=== PATIENT | male | born 1935 | race Caucasian/White ===

== ENCOUNTER 2023-12-30 16:01 | Emergency (ER) | payer MEDICARE, BC, SELFPAY ==
[2023-12-30 16:44] VITALS: BP 130/74; PULSE 88; RESP 18; TEMP 36.5; O2SAT 96; BMI 27.2
--- NOTE | 2023-12-30 17:11 | EKG_ITS ---
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
--- NOTE | 2023-12-30 17:11 | XR_ITS ---
Examination: PA lateral chest 2 views Technique: Upright PA lateral chest 2 views Exam date and time: December 30, 2023 1733 hrs. Indications: Onset chest pain today. Findings: Minimal prominence left ventricle Cardiac leads satisfactory position No lobar pneumonia or pulmonary edema Prominent osteopenia Impression: No lobar pneumonia or pulmonary edema
--- NOTE | 2023-12-30 17:11 | PD.EDRME ---
Rapid Medical Screening Exam RME Arrival date/time: 12/30/23 16:01 Chief Complaint: Upper Respiratory Infection Time Seen by Provider: 12/30/23 16:55 Vital signs: Vital Signs Temperature 97.7 F 12/30/23 16:44 Pulse Rate 88 12/30/23 16:44 Respiratory Rate 18 12/30/23 16:44 Blood Pressure 130/74 12/30/23 16:44 Pulse Oximetry (%) 96 12/30/23 16:44 Oxygen Delivery Method Room Air 12/30/23 16:44 Vital signs reviewed by provider: Yes RME Narrative: 88-year-old male with past medical history of CAD presents for evaluation of cough and chest heaviness x 1 day. He reports recent URI with productive cough x 3 days. He states he feels like he is fluid in his lungs.
[2023-12-30 17:38] LABS: Collection Type, Urine Clean Catch; Squamous Epithelial Cell,Urine 0 /hpf (0-5); WBC,Urine 0 /hpf (0-5)
[2023-12-30 17:43] LABS: Basophils # (Auto) 0.1 Thou/mm3 (0.0-0.2); Basophils % (Auto) 1 % (0-2.5); Eosinophils # (Auto) 0.2 Thou/mm3 (0.0-0.5); Eosinophils % (Auto) 3 % (0-10); Hematocrit 40.7 % (41.0-53.0); Hemoglobin 13.9 g/dL (13.5-16.0); Immature Granulocytes % (Auto) 0 % (0-0); Immature Granulocytes Auto 0.03 Thou/mm3 (0.00-0.00); Lymphocytes # (Auto) 1.7 Thou/mm3 (1.0-4.8); Lymphocytes % (Auto) 24 % (10-50); Mean Corpuscular HGB Conc 34.2 g/dl (31.0-37.0); Mean Corpuscular Hemoglobin 31.6 pg (25.0-35.0); Mean Corpuscular Volume 93 fL (80-100); Monocytes # (Auto) 0.7 Thou/mm3 (0.0-0.8); Monocytes % (Auto) 10 % (0-12); Neutrophils # (Auto) 4.5 Thou/mm3 (1.8-7.7); Neutrophils % (Auto) 62 % (37-80); Nucleated Red Blood Cell % 0 /100 WBC (0); Platelet Count 141 Thou/mm3 (140-440); RDW Standard Deviation 43.9 fL (35.1-43.9); White Blood Count 7.2 Thou/mm3 (3.8-10.6)
[2023-12-30 17:43] LABS: Bilirubin,Urine Negative (Negative); Blood,Urine Negative (Negative); Clarity,Urine Clear (Clear/Hazy); Color,Urine Yellow (Lt Yel-Yel); Glucose, Urine Negative (Negative); Ketones,Urine Negative (Negative); Leukocyte Esterase,Urine Negative (Negative); Nitrite,Urine Negative (Negative); PH,Urine 6.5 (5.0-7.0); Protein,Urine Negative (Neg - Trace); RBC,Urine < 1 /hpf (0-3); Specific Gravity,Urine 1.013 (1.001-1.035); Urobilinogen,Urine Negative mg/dL (0.0-1.0)
[2023-12-30 17:57] LABS: Partial Thromboplastin Time 25.5 Seconds (22.0-36.0); Prothrombin Time 10.9 Seconds (9.0-12.2)
[2023-12-30 18:01] LABS: Amphetamine/Methamp Scrn,U Negative (Negative); Barbiturate Screen,Urine Negative (Negative); Benzodiazepines Screen,Urine Negative (Negative); Benzoylecgonine Screen, Ur Negative (Negative); Fentanyl Screen,Urine Negative (Negative); Opiate Screen,Urine Negative (Negative); THC Screen,Urine Negative (Negative)
[2023-12-30 18:01] LABS: B-Type Natriuretic Peptide 145 pg/mL (0-100)
[2023-12-30 18:04] LABS: Alanine Aminotransferase 21 U/L (10-49); Albumin, Serum 4.3 gm/dL (3.4-4.8); Alkaline Phosphatase 57 U/L (46-116); Anion Gap 7 (7-16); Aspartate Amino Transferase 25 U/L (0-34); BUN/Creatinine Ratio 19 Ratio (12-20); Bilirubin,Total 0.8 mg/dL (0.3-1.2); Blood Urea Nitrogen 17 mg/dL (9-23); Calcium 9.4 mg/dL (8.3-10.6); Calcium (Corrected) 9.4 mg/dL (8.5-10.1); Carbon Dioxide 28.2 mMol/L (20.0-31.0); Chloride 97 mMol/L (98-107); Creatinine (Component) 0.9 mg/dL (0.6-1.3); Estimated Creatinine Clearance 64.7 mL/min (>60); Globulin 2.2 gm/dL (2.3-3.5); Glucose 129 mg/dL (74-106); Magnesium 2.1 mg/dL (1.6-2.6); Osmolality,Calculated 268 (275-295); Potassium 4.5 mMol/L (3.4-5.1); Sodium 132 mMol/L (136-145); Total Protein 6.5 gm/dL (5.7-8.2); Troponin I 0.023 ng/mL (0.0-0.045); eGFR > 60 See Note
--- NOTE | 2023-12-30 19:02 | EDNOTE_ITS ---
Upper Respiratory Inf. RME/HPI General Chief Complaint: Upper Respiratory Infection Stated Complaint: cough, wheezing. I think I have pna per pt Time Seen by Provider: 12/30/23 16:55 Arrival date/time: 12/30/23 16:01 RME / HPI RME / HPI Narrative: 88-year-old male with past medical history of CAD presents for evaluation of cough and chest heaviness x 1 day. He reports recent URI with productive cough x 3 days. He states he feels like he is fluid in his lungs. This section includes all my notes and documentations, including HPI, PE, and ED course. Yung Cee MD HPI: 88-year-old male here with about a week history of worsening cough, productive cough, purulent sputum, and dyspnea. No fever. No chest pain. No other complaints. ROS: Respiratory: negative except as documented in HPI. Musculoskeletal: negative except as documented in HPI. Skin: negative except as documented in HPI. Neurological: negative except as documented in HPI. Physical Exam: General: Alert and oriented. Hacking cough noted. Eyes: Conjunctivae and lids clear. ENT: No nasal congestion. Pharynx normal. Tympanic membrane normal bilaterally. Neck: Supple. Heart: RRR. Lungs: No respiratory distress. Mildly decreased air movement with diffuse rhonchi. Skin: Warm and dry. Neuro: Alert and oriented X 3. I reviewed all diagnostic test results. My interpretation of the EKG is sinus rhythm with nonspecific ST-T changes. My interpretation of the chest x-ray is no acute findings. Blood tests unremarkable. COVID/influenza negative. At this point, diagnoses include bronchitis. Treatment here included Zithromax and prednisone and neb treatment. Significant improvement noted subjectively and objectively. Recommended a trial of outpatient treatment. Based on my best medical judgment, made decision no further evaluation or treatment indicated at this time. Patient understands and agrees to the discharge instructions customized and printed, see below. Discharge instructions from Dr. Cee: --No physical exertion for 3 days to help rest the lungs. ?No smoking or exposure to smoking or pets or dust or cold or humidity. --Zithromax to kill the germs causing the bronchitis. --Prednisone to help decrease the swelling in the airways. --Albuterol 2 puffs every 4-6 hours for 3 days to help keep the airways open.? Then as needed for cough or shortness of breath. --See a private doctor next week for recheck.? --Seek immediate medical care with worsening or with any concerns. Yung Cee MD Related Data Home Medications ?Medication ?Instructions ?Recorded ?Confirmed aspirin 81 mg tablet,delayed 81 mg PO QDAY 04/18/18 07/30/23 release (Aspir-) amlodipine 5 mg tablet 5 mg PO QDAY 03/12/20 07/30/23 metoprolol succinate 25 mg 25 mg PO QDAY 05/01/23 07/30/23 tablet,extended release 24 hr clopidogrel 75 mg tablet (Plavix) 75 mg PO QDAY 07/30/23 07/30/23 Previous Rx's ?Medication ?Instructions ?Recorded albuterol sulfate 90 mcg/actuation 2 inh inhalation QID PRN shortness 12/30/23 aerosol inhaler of breath or wheezing #8.5 grams azithromycin 500 mg tablet 500 mg PO QDAY 3 days #3 tabs 12/30/23 (Zithromax TRI-EVERT) prednisone 50 mg tablet 50 mg PO QDAY 3 days #3 tabs 12/30/23 Allergies Allergy/AdvReac Type Severity Reaction Status Date / Time No Known Allergies Allergy Verified 12/30/23 16:02 Course Quality Measures none Orders Category Date Time Status Bedside COVID-19 Antigen Test NOW Care 12/30/23 17:11 Active Bedside Influenza A&B Antigen Test NOW Care 12/30/23 17:11 Active EKG (ED ONLY) *Do not use* NOW Care 12/30/23 17:11 Completed EKG (ED Only) Stat Exams 12/30/23 17:11 Draft XR chest 2V Stat Exams 12/30/23 17:11 Completed B-Type Natriuretic Peptide Stat Lab 12/30/23 17:28 Completed CBC Stat Lab 12/30/23 17:28 Completed Comprehensive Metabolic Panel Stat Lab 12/30/23 17:28 Completed Drug Screen,Urine Stat Lab 12/30/23 17:30 Completed Magnesium Stat Lab 12/30/23 17:28 Completed Partial Thromboplastin Time Stat Lab 12/30/23 17:28 Completed Prothrombin Time with INR Stat Lab 12/30/23 17:28 Completed Troponin I Stat Lab 12/30/23 17:28 Completed Urinalysis Stat Lab 12/30/23 17:30 Completed Albuterol/Ipratr Rt Akilah [Duoneb Rt Akilah] Med 12/30/23 18:39 Discontinued 3 ml INH X1 ONE Azithromycin Po [Zithromax PO] Med 12/30/23 18:39 Discontinued 500 mg PO X1 ONE predniSONE Med 12/30/23 18:39 Discontinued 60 mg PO X1 ONE Vital Signs Vital signs: Vital Signs Temperature 97.7 F 12/30/23 16:44 Pulse Rate 88 12/30/23 16:44 Respiratory Rate 18 12/30/23 16:44 Blood Pressure 130/74 12/30/23 16:44 Pulse Oximetry (%) 96 12/30/23 16:44 Oxygen Delivery Method Room Air 12/30/23 16:44 Upper Respiratory Infection Patient data External records reviewed:: [facility] previous records Clinical information provided by:: patient Social determinants that could affect healthcare access:: none Patient has the following chronic illnesses:: See chart How is presenting disease/condition affected by chronic disease/condition?: uneffected by Evaluation data The following diagnostics were reviewed and interpreted by me:: lab results, radiology exam(s) and EKG tracing(s) (Paced rhythm (64 bpm). Yung Cee MD) Lab and/or radiology exams considered but not ordered:: None Interpretation Summary: Bronchitis Medications / Prescriptions Medications or Prescriptions considered but not ordered:: None Medication administrations:: Medication Administration History Discontinued Medications Albuterol/Ipratropium (Albuterol/Ipratropium (Duoneb) Rt [place]ilah 3 Ml Nebu) 3 ml INH X1 ONE Stop: 12/30/23 18:40 Azithromycin (Azithromycin 250 Mg Tablet) 500 mg PO X1 ONE Stop: 12/30/23 18:40 Prednisone (Prednisone 20 Mg Tablet) 60 mg PO X1 ONE Stop: 12/30/23 18:40 Zithromax and prednisone and neb treatment Consultations Consultation(s) initiated? (list below): No Diagnosis Upper Respiratory Differential Diagnosis: upper respiratory infection, sinu sitis, viral infection, bronchitis and influenza Most likely diagnosis given after review of the tests above:: Bronchitis Admission Indicated Admission indicated?: not indicated Explain why admission is indicated or not indicated:: No admission criteria Admission Request Was there a request for admission?: No Disposition Plan Disposition Plan: Discharge Discharge Attestation Discharge Attestation: The patient and all family members were given an opportunity to ask questions and understood the discharge instructions. Discharge instructions specifically effects, indications for sooner follow up or return to the emergency department, and the expected course of current diagnosis. Patient condition: Stable Discharge Plan Plan Patient Disposition: HOME (Self Care) Prescriptions/Referrals Prescriptions/Med Rec: New albuterol sulfate 90 mcg/actuation HFA aerosol inhaler 2 inh inhalation QID PRN (Reason: shortness of breath or wheezing) Qty: 8.5 0RF azithromycin [Zithromax TRI-EVERT] 500 mg tablet 500 mg PO QDAY 3 Days Qty: 3 0RF prednisone 50 mg tablet 50 mg PO QDAY 3 Days Qty: 3 0RF No Action aspirin [Aspir-81] 81 mg Tablet,Delayed Release (Dr/Ec) 81 mg PO QDAY amlodipine 5 mg Tablet 5 mg PO QDAY clopidogrel [Plavix] 75 mg Tablet 75 mg PO QDAY metoprolol succinate 25 mg tablet extended release 24 hr 25 mg PO QDAY Patient Comments: TAKE 1 TABLET BY MOUTH EVERY DAY FOR 30 DAYS Referrals: Germain Demarco MD [Primary Care Provider] - In 1 week Problem List Clinical Impression: Bronchitis Patient/Caregiver Discharge Instructions Discharge Activity: activity as tolerated Education Materials: ED Bronchitis with Wheezing (Adult) Additional Instructions: Discharge instructions from Dr. Cee: --No physical exertion for 3 days to help rest the lungs. ?No smoking or exposure to smoking or pets or dust or cold or humidity. --Zithromax to kill the germs causing the bronchitis. --Prednisone to help decrease the swelling in the airways. --Albuterol 2 puffs every 4-6 hours for 3 days to help keep the airways open.? Then as needed for cough or shortness of breath. --See a private doctor next week for recheck.? --Seek immediate medical care with worsening or with any concerns. Print Language: Cymraes Stand Alone Forms: [employer] Award Info., Patient Portal Info Letter
[2023-12-30] MEDS: predniSONE 20 MG TABLET 60 MG PO (19:07)
[2023-12-30] MEDS: AZITHROMYCIN 250 MG TABLET 500 MG PO (19:07)
[2023-12-30] MEDS: ALBUTEROL/IPRATROPIUM (Duoneb) RT SOL 3 ML NEBU INH (19:50)
[2023-12-30 19:51] VITALS: PULSE 51; RESP 18; O2SAT 100
== END 2023-12-30 20:10 | disposition home or self-care (01) ==
PROVIDERS: Physician Assistant; Emergency Provider Emergency Medicine; PCP Internal Medicine
DX: J40 Bronchitis, not specified as acute or chronic (principal); R94.31 Abnormal electrocardiogram [ECG] [EKG]; Z95.0 Presence of cardiac pacemaker
CPT/HCPCS: 36415; 71046; 80053; 80307; 81001; 83735; 83880; 84484; 85025; 85610; 85730; 93005; 94640; 99283; A9270; J7512